=== PATIENT | female | born 1980 | race Caucasian/White ===

== ENCOUNTER 2016-09-14 11:22 | Emergency (ER) | payer MEDICARE, MEDICAID ==
--- NOTE | 2016-09-14 11:51 | ER Document Report ---
ED Medical Screen (RME) - General Chief Complaint: Chest Pain Stated Complaint: LEFT SIDE PAIN Time Seen by Provider: 09/14/16 11:45 Notes: Patient says that the left side of her body feels puffy and swollen for the past week. She also has shortness of breath. And now, she has developed pain in the upper left anterior chest. She has not been sick recently with a cough or cold or chest congestion. No fevers. She was treated by a local jewellery designer with an antibiotic for 2 weeks for an intestinal infection. No history of any heart disease, kidney disease, liver disease. History of seizures of unknown medicines for the same. TRAVEL OUTSIDE OF THE [place] IN LAST 30 DAYS: No - Related Data Allergies/Adverse Reactions: carbamazepine [From Tegretol] Allergy (Verified 09/14/16 11:27) divalproex sodium [From Depakote] Allergy (Verified 09/14/16 11:27) pregabalin [From Lyrica] Allergy (Verified 09/14/16 11:27) promethazine [From Phenergan] Allergy (Verified 09/14/16 11:27) Sulfa (Sulfonamide Antibiotics) Allergy (Verified 09/14/16 11:27) tetrahydrozoline [From Visine] Allergy (Verified 09/14/16 11:27) Past Medical History Renal/ Medical History: Denies: Hx Peritoneal Dialysis Physical Exam - Vital signs Vitals: Temp Pulse Resp BP Pulse Ox 98.7 F 97 16 119/71 97 09/14/16 11:27 09/14/16 11:27 09/14/16 11:27 09/14/16 11:27 09/14/16 11:27 Course - Vital Signs Vital signs: Temp Pulse Resp BP Pulse Ox 98.7 F 97 16 119/71 97 09/14/16 11:27 09/14/16 11:27 09/14/16 11:27 09/14/16 11:27 09/14/16 11:27
--- NOTE | 2016-09-14 12:35 | RADIOLOGY REPORT (SQ) ---
EXAM DESCRIPTION: CHEST PA/LAT COMPLETED DATE/TIME: 09/14/2016 12:26 pm REASON FOR STUDY: Short of breath and feels swollen on left side COMPARISON: None. EXAM PARAMETERS: NUMBER OF VIEWS: two views TECHNIQUE: Digital Frontal and Lateral radiographic views of the chest acquired. RADIATION DOSE: NA LIMITATIONS: none FINDINGS: LUNGS AND PLEURA: No opacities, masses or pneumothorax. No pleural effusion. MEDIASTINUM AND HILAR STRUCTURES: No masses or contour abnormalities. HEART AND VASCULAR STRUCTURES: Heart normal size. No evidence for failure. BONES: No acute findings. HARDWARE: None in the chest. OTHER: No other significant finding. IMPRESSION: NO SIGNIFICANT RADIOGRAPHIC FINDING IN THE CHEST. TECHNICAL DOCUMENTATION: JOB ID: [id number] [employer]- All Rights Reserved
[2016-09-14 13:00] LABS: ABSOLUTE EOSINOPHILS # (AUTO) 0.2 10^3/uL (0.0-0.6); ABSOLUTE LYMPHOCYTES (AUTO) 1.7 10^3/uL (0.5-4.7); ABSOLUTE MONOCYTES (AUTO) 0.4 10^3/uL (0.1-1.4); ABSOLUTE NEUT (AUTO) 4.3 10^3/uL (1.7-8.2); BASOPHILS % (AUTO) 0.6 % (0-2); EOSINOPHILS % (AUTO) 3.2 % (0-6); HEMATOCRIT 43.6 % (36.0-47.0); HEMOGLOBIN 14.4 g/dL (12.0-15.5); HGB HCT DIFFERENCE -0.4; LYMPHOCYTES % (AUTO) 25.7 % (13-45); MEAN CORPUSCULAR HEMOGLOBIN 32.2 pg (27.0-33.4); MEAN CORPUSCULAR HGB CONC 33.1 g/dL (32.0-36.0); MEAN CORPUSCULAR VOLUME 97 fl (80-97); MONOCYTES % (AUTO) 5.7 % (3-13); RED BLOOD COUNT 4.49 10^6/uL (3.72-5.28); RED CELL DISTRIBUTION WIDTH 13.4 % (11.5-14.0); SEGMENTED NEUTROPHILS % (AUTO) 64.8 % (42-78); WHITE BLOOD COUNT 6.6 10^3/uL (4.0-10.5)
[2016-09-14 13:15] LABS: ALANINE AMINOTRANSFERASE 20 U/L (9-52); ALBUMIN 3.9 g/dL (3.5-5.0); ALKALINE PHOSPHATASE 74 U/L (38-126); ANION GAP 14 (5-19); ASPARTATE AMINO TRANSFERASE 14 U/L (14-36); BILIRUBIN,DIRECT 0.3 mg/dL (0.0-0.4); BILIRUBIN,TOTAL 0.3 mg/dL (0.2-1.3); BLOOD UREA NITROGEN 10 mg/dL (7-20); CALCIUM 8.8 mg/dL (8.4-10.2); CARBON DIOXIDE 15 mmol/L (22-30); CHLORIDE 115 mmol/L (98-107); CREATININE RESULT 0.61 mg/dL (0.52-1.25); GLUCOSE 119 mg/dL (75-110); POTASSIUM 4.2 mmol/L (3.6-5.0); SODIUM 144.4 mmol/L (137-145); TOTAL PROTEIN 6.6 g/dL (6.3-8.2)
[2016-09-14 13:16] LABS: APPEARANCE,URINE SLIGHTLY-CLOUDY; BILIRUBIN,URINE NEGATIVE (NEGATIVE); CALCIUM OXALATE CRYSTALS,URINE FEW /HPF; GLUCOSE, URINE NEGATIVE (NEGATIVE); KETONES,URINE NEGATIVE (NEGATIVE); LEUKOCYTE ESTERASE,URINE NEGATIVE (NEGATIVE); NITRITE,URINE NEGATIVE (NEGATIVE); PROTEIN,URINE NEGATIVE (NEGATIVE); URINE SPECIFIC GRAVITY 1.018; UROBILINOGEN,URINE NEGATIVE mg/dL (<2.0)
[2016-09-14 13:25] LABS: CREATINE KINASE MB 0.39 ng/mL (<4.55)
--- NOTE | 2016-09-14 13:26 | ER Document Report ---
ED General - General Chief Complaint: Chest Pain Stated Complaint: LEFT SIDE PAIN Time Seen by Provider: 09/14/16 11:45 Mode of Arrival: Ambulatory Information source: Patient TRAVEL OUTSIDE OF THE [place] IN LAST 30 DAYS: No - HPI Patient complains to provider of: Left-sided swelling Onset: Last week Onset/Duration: Gradual Quality of pain: Achy, Fullness, Pressure Severity: Mild Pain Level: 2 Associated symptoms: Body/muscle aches, Chest pain, Shortness of breath Exacerbated by: Movement, Coughing, Deep breathing Relieved by: Denies Similar symptoms previously: No Recently seen / treated by doctor: Yes Notes: Patient is a 35-year-old female with a history of epilepsy, IBS and chronic back pain, who presents to the emergency room complaining of left-sided chest pain that is reproducible with palpation, shortness of breath, and swelling to her left lower extremity, states it feels tight, hurts to walk on it, denies any injury, no history of similar symptoms previously, she was recently started on a new medication by her lei maker called Xifaxan - Related Data Allergies/Adverse Reactions: carbamazepine [From Tegretol] Allergy (Verified 09/14/16 11:27) divalproex sodium [From Depakote] Allergy (Verified 09/14/16 11:27) pregabalin [From Lyrica] Allergy (Verified 09/14/16 11:27) promethazine [From Phenergan] Allergy (Verified 09/14/16 11:27) Sulfa (Sulfonamide Antibiotics) Allergy (Verified 09/14/16 11:27) tetrahydrozoline [From Visine] Allergy (Verified 09/14/16 11:27) Past Medical History - General Information source: Patient - Social History Smoking Status: Current Every Day Smoker Family History: Reviewed & Not Pertinent Patient has suicidal ideation: No Patient has homicidal ideation: No Renal/ Medical History: Denies: Hx Peritoneal Dialysis Review of Systems - Review of Systems Constitutional: No symptoms reported EENT: No symptoms reported Cardiovascular: See HPI Respiratory: See HPI Gastrointestinal: No symptoms reported Genitourinary: No symptoms reported Female Genitourinary: No symptoms reported Musculoskeletal: See HPI Skin: No symptoms reported Hematologic/Lymphatic: No symptoms reported Neurological/Psychological: No symptoms reported -: Yes All other systems reviewed and negative Physical Exam - Vital signs Vitals: Temp Pulse Resp BP Pulse Ox 98.7 F 97 16 119/71 97 09/14/16 11:27 09/14/16 11:27 09/14/16 11:27 09/14/16 11:27 09/14/16 11:27 Interpretation: Normal - General General appearance: Appears well, Alert - HEENT Head: Normocephalic, Atraumatic Eyes: Normal Pupils: PERRL - Respiratory Respiratory status: No respiratory distress Chest status: Tender - tender to palpate in the left anterior chest wall Breath sounds: Normal Chest palpation: Normal - Cardiovascular Rhythm: Regular Heart sounds: Normal auscultation Murmur: No - Abdominal Inspection: Normal Distension: No distension Bowel sounds: Normal Tenderness: Nontender Organomegaly: No organomegaly - Back Back: Normal, Nontender - Extremities General upper extremity: Normal inspection, Nontender, Normal color, Normal ROM , Normal temperature General lower extremity: Normal ROM, Normal temperature, Normal weight bearing. No: Nemo's sign Calf: Tender, Other - mild diffuse swelling to left lower extremity, mild tenderness, distal sensation and motor is intact with 2+ DP pulses and brisk capillary refill - Neurological Neuro grossly intact: Yes Cognition: Normal Orientation: AAOx4 Jaclyn Coma Scale Eye Opening: Spontaneous [place] Coma Scale Verbal: Oriented Jaclyn Coma Scale Motor: Obeys Commands Jaclyn Coma Scale Total: 15 Speech: Normal Motor strength normal: LUE, RUE, LLE, RLE Sensory: Normal - Psychological Associated symptoms: Normal affect, Normal mood - Skin Skin Temperature: Warm Skin Moisture: Dry Skin Color: Normal Course - Re-evaluation Re-evalutation: 09/14/16 14:22 Imaging findings were discussed with patient at bedside which are unremarkable, she will be discharged with instructions for follow-up and advised to return if symptoms worsen, patient acknowledges understanding and agreement with this plan - Vital Signs Vital signs: Temp Pulse Resp BP Pulse Ox 98.7 F 97 16 119/71 97 09/14/16 11:27 09/14/16 11:27 09/14/16 11:27 09/14/16 11:27 09/14/16 11:27 - Laboratory Result Diagrams: 09/14/16 12:30 09/14/16 12:30 Laboratory results interpreted by me: 09/14/16 09/14/16 09/14/16 12:30 12:30 12:30 Chloride 115 H Carbon Dioxide 15 L Glucose 119 H NT-Pro-B Natriuret Pep 140 H Valproic Acid < 10.0 L - Diagnostic Test Radiology reviewed: Image reviewed, Reports reviewed - EKG Interpretation by Me EKG shows normal: Sinus rhythm Rate: Normal Rhythm: NSR Discharge - Discharge Clinical Impression: Chest wall pain Edema Qualifiers: Edema type: generalized Qualified Code(s): R60.1 - Generalized edema Condition: Stable Disposition: HOME, SELF-CARE Instructions: Edema, Peripheral ([facility]) Additional Instructions: Follow up with your primary care provider in one to 2 days. Return to the emergency room immediately if symptoms worsen or any additional concerns.
[2016-09-14 13:28] LABS: TROPONIN I < 0.012 ng/mL
--- NOTE | 2016-09-14 14:30 | EKG REPORT ---
SEVERITY:- NORMAL ECG - SINUS RHYTHM : Confirmed by: Latosha Torres 14-Sep-2016 14:29:59
[2016-09-14 15:03] VITALS: BP 110/67
== END 2016-09-14 14:50 | disposition home or self-care (01) ==
LOC: ER 11:22
DX: R07.89 Other chest pain (principal); R06.02 Shortness of breath; R60.1 Generalized edema; F17.200 Nicotine dependence, unspecified, uncomplicated; Z88.8 Allergy status to other drugs, medicaments and biological substances; Z88.6 Allergy status to analgesic agent; Z88.2 Allergy status to sulfonamides
CPT/HCPCS: 36415; 71020; 80053; 80164; 81001; 82553; 83880; 84484; 84703; 85025; 85379; 93005; 93010; 99285